=== PATIENT | female | born 1970 | race Caucasian/White ===

== ENCOUNTER 2019-04-16 07:25 | Day surgery (SDC) | payer OTHER ==
[~2019-04-16] VITALS: Ht 160 cm; Wt 70.3 kg
[2019-04-16] MEDS ORDERED: fentaNYL 0.05 MG/ML VIAL ONE ×2 (09:08→09:40)
[2019-04-16] MEDS ORDERED: MIDAZOLAM 2 MG/2 ML VIAL ONE ×3 (09:08→09:40)
[2019-04-16] MEDS ORDERED: LIDOCAINE 2% 100 MG/5 ML UJET TP ONE (09:09)
[2019-04-16] MEDS ORDERED: MIDAZOLAM 2 MG/2 ML VIAL IVP ONE (09:20)
[2019-04-16] MEDS ORDERED: fentaNYL 0.05 MG/ML VIAL IVP ONE (09:22)
== END 2019-04-16 11:07 | disposition home or self-care (01) ==
LOC: MDS 07:25 → MMU 07:26 → MDS 11:07
PROVIDERS: ATTEND Internal Medicine Gastroenterology
DX: D50.9 Iron deficiency anemia, unspecified (principal); K63.89 Other specified diseases of intestine; K57.30 Diverticulosis of large intestine without perforation or abscess without bleeding; K20.9 Esophagitis, unspecified; K29.70 Gastritis, unspecified, without bleeding; K29.80 Duodenitis without bleeding; F17.210 Nicotine dependence, cigarettes, uncomplicated; F41.9 Anxiety disorder, unspecified; Z79.01 Long term (current) use of anticoagulants; Z79.899 Other long term (current) drug therapy; Z72.89 Other problems related to lifestyle
CPT/HCPCS: 43239; 45380; 81025; 88305; J2250; J3010